=== PATIENT | female | born 1945 | race Caucasian/White ===

== ENCOUNTER 2022-11-10 10:51 | Emergency (ER) | payer MEDICARE, SELFPAY ==
--- NOTE | ~2022-11-10 | XR_ITS ---
EXAMINATION: XR hip LT 2V w AP pelvis DATE: 11/10/2022 12:35 INDICATION: Pelvis injury. TECHNIQUE: An anteroposterior view of the pelvis and 2 views of left hip were obtained. COMPARISON: None. FINDINGS: There is lumbar dextroscoliosis and severe spondylosis. There are fractures of left superio r and inferior pubic rami. There is mild osteoarthritis of the hips. Surgical clips overlie the pelvi s. IMPRESSION: 1. Fractures of left superior and inferior pubic rami. 2. Mild osteoarthritis of the hips. Reviewed, dictated and finalized at location A.
--- NOTE | ~2022-11-10 | XR_ITS ---
EXAMINATION: XR femur LT min 2V DATE: 11/10/2022 12:35 INDICATION: Left hip pain. TECHNIQUE: 2 views of left femur on 4 radiographs were obtained. COMPARISON: None. FINDINGS: Bone alignment is normal. There are fractures of left superior and inferior pubic rami. The re is mild left hip osteoarthritis. There is severe left knee osteoarthritis. No knee joint effusion. Surgical clips overlie the pelvis. IMPRESSION: 1. Acute fractures of left superior and inferior pubic rami. 2. Polyarticular osteoarthritis. Reviewed, dictated and finalized at location A.
[2022-11-10 10:52] VITALS: BP 118/85; PULSE 73; RESP 13; TEMP 37.4; O2SAT 97
[2022-11-10 11:13] VITALS: PULSE 74
--- NOTE | 2022-11-10 13:07 | ED.GENADULT ---
HPI - General Adult General Chief complaint: Unspecified Stated complaint: xrays Time Seen by Provider: 11/10/22 12:04 History of Present Illness HPI narrative: 77-year-old female on hospice at home presented to the ED after having a fall approximately 3 days ago. states that the patient slowly collapse to the ground and injured her left hip. He states that the patient did not hit her head and had no loss of consciousness. Patient denies any pain other than her left hip. They have been helping the patient to ambulate around they have had no difficulty with this. Related Data Home Medications Medication Instructions Recorded Confirmed calcium carbonate 600 mg-vitamin 1 tablet PO DAILY 02/13/19 04/16/21 D3 10 mcg (400 unit) chewable tablet (Calcium 600 with Vitamin D3) famotidine 20 mg tablet (Pepcid AC) 20 mg PO DAILY 02/13/19 04/16/21 memantine 5 mg tablet 5 mg PO QAM 12/05/20 04/16/21 quetiapine 25 mg tablet 25 mg PO DAILY 12/05/20 04/16/21 Allergies Allergy/AdvReac Type Severity Reaction Status Date / Time No Known Allergies Allergy Verified 11/10/22 11:10 Review of Systems Review of Systems: ROS unobtainable: Yes unobtainable due to medical condition and unobtainable due to mental status PMFSH Past Medical History Medical History (Updated 11/10/22 @ 13:12 by Ross Solorio MD) Abnormal colonoscopy (~06/05/14) Colon cancer (~1990) Hepatitis C antibody test negative (~01/15/17) SVT (supraventricular tachycardia) Surgical History Surgical History History of bunionectomy (~09/01/18) History of hernia repair (~06/14/18) History of hysterectomy (~2014) History of left oophorectomy (~1990) Family History Family History Father Cerebrovascular accident, Onset Age: 93 Family history of cardiovascular disease Carcinoma of colon Family history of Alzheimer's disease Mother Family history of Alzheimer's disease, Onset Age: 91 Family history of dementia Social History Social History Alcohol intake: never Exam Narrative: APPEARANCE: Well appearing, no pain, no distress, well-nourished. HEAD: normocephalic, atraumatic. EYES: PERRLA/EOMI, conjunctivae clear. NOSE: Normal no drainage EARS:TMS clear with good light reflex. THROAT: Pharynx clear, no exudate. NECK: Supple. No adenopathy, no masses. RESPIRATORY: Airway patent, respirations nonlabored. Clear to auscultation bilaterally, no rales, rhonchi, wheezing. CARDIOVASCULAR: Regular rate and rhythm without murmurs rubs or gallops. ABDOMINAL: Soft, nontender, nondistended, normal bowel sounds MUSCULOSKELETAL: Moves all extremities. Strength/ROM intact, No edema, No calf tenderness. NEURO: Alert. Cranial nerves II through XII intact. Grossly intact SKIN: Warm, dry. Normal Color PSYCHIATRIC: Normal affect/mood. Course Course Emergency Course: 77-year-old female with history of Alzheimer's with hospice care at home presents to the ED for complaint of left hip pain. Patient and are updated on the results of the x-ray. Discussed admission for PT OT versus discharge to home and patient's does prefer to be discharged home with outpatient follow-up. Over the last few days patient has had limited weightbearing on the left and they are using a wheelchair and gait belts and 2 people assist. Patient was also told that if he feels that the patient's symptoms worsen they are able to return to the emergency department. All questions and concerns were addressed. Vital Signs Vital signs: Vital Signs Temperature 99.4 F 11/10/22 10:52 Pulse Rate 73 11/10/22 10:52 Respiratory Rate 13 11/10/22 10:52 Blood Pressure 118/85 11/10/22 10:52 Pulse Oximetry 97 11/10/22 10:52 Oxygen Delivery Room Air 11/10/22 10:52 Temperature 99.4 F
[2022-11-10] MEDS: HYDROcodone/acetaminophen (*CRX) 5-325 MG TABLET 1 TAB PO (13:26)
[2022-11-10 13:32] VITALS: BP 107/82; PULSE 7; RESP 19; O2SAT 99
[2022-11-10 14:44] VITALS: BP 118/51; PULSE 70; RESP 18
== END 2022-11-10 15:30 | disposition hospice, home (50) ==
PROVIDERS: Emergency Provider Emergency Medicine; PCP Family Medicine
DX: S32.592A Other specified fracture of left pubis, initial encounter for closed fracture (principal); G30.9 Alzheimer's disease, unspecified; F02.80 Dementia in other diseases classified elsewhere, unspecified severity, without behavioral disturbance, psychotic disturbance, mood disturbance, and anxiety; Z85.038 Personal history of other malignant neoplasm of large intestine; Z90.710 Acquired absence of both cervix and uterus; Z90.721 Acquired absence of ovaries, unilateral; M16.0 Bilateral primary osteoarthritis of hip; W18.30XA Fall on same level, unspecified, initial encounter
CPT/HCPCS: 73502; 73552; 99284; A9270